=== PATIENT | female | born 1985 | race Caucasian/White ===

== ENCOUNTER 2023-08-25 10:18 | Emergency (ER) | payer OTHER, SELFPAY ==
[2023-08-25 10:32] VITALS: BP 107/56; PULSE 71; RESP 18; TEMP 36.6; O2SAT 100
--- NOTE | 2023-08-25 10:34 | ED.GENADULT ---
HPI - General Adult General Chief complaint: Urogenital-Female Stated complaint: uti symptoms Time Seen by Provider: 08/25/23 10:33 Source: patient, RN notes reviewed and old records reviewed Mode of arrival: ambulatory Limitations: no limitations History of Present Illness HPI narrative: 38 year old female to [facility] with complaint of urinary frequency, urgency, painful and burning urination for 3 days. Patient also endorsing lower abdominal cramps and hematuria with wiping post void. Patient denies vaginal odor, itching, discharge, fevers, nausea, abdominal pain, back pain. Patient endorses last menstrual period was last week. Patient endorsing current pain of 1/10. P atient denies attempting to treat at home prior to arrival. Patient able to tolerate fluids by mouth. Related Data Home Medications Medication Instructions Recorded Confirmed metformin 500 mg tablet mg 08/25/23 Allergies Allergy/AdvReac Type Severity Reaction Status Date / Time No Known Allergies Allergy Verified 08/25/23 10:35 Review of Systems Review of Systems: All systems reviewed & are unremarkable except as noted in HPI and below Constitutional: Constitutional: Reports as per HPI and Denies fever(s) Eyes: Eyes: Reports no additional eye complaints ENT: Reports system reviewed and no additional complaints, except as documented Cardiovascular: Cardiovascular: Reports no additional cardiovascular complaints, Denies chest pain and Denies dyspnea Respiratory: Respiratory: Reports no additional respiratory complaints, Denies cough and Denies dyspnea Gastrointestinal: Gastrointestinal: Reports as per HPI, Denies nausea and Denies vomiting Genitourinary: Genitourinary: Reports as per HPI, Reports hematuria (when wiping post void), Reports nocturia, Denies genital pruritis, Denies flank pain, Denies urinary incontinence, Reports urinary urgency and Denies vaginal pruritus Musculoskeletal: Musculoskeletal: Reports no additional musculoskeletal complaints Neurologic: Reports system reviewed and no additional complaints, except as documented Psychiatric: Psychiatric: Reports no additional psychiatric complaints PMFSH Comments At the time of my signature, I reviewed and agree with the nursing past medical, surgical, social, and family history. There is no relevant family history pertinent to the patient complaint. Exam Const: General: cooperative, healthy appearing, no acute distress, alert and well nourished Nutritional Appearance: well nourished Orientation/consciousness: patient oriented x3 Limitations: no limitations HENMT: Head: normal to inspection Ears: external ears normal Face/Nose/Sinus: Normal external nose present, Normal nares present, normal facial exam, No erythema and No edema Face and sinus: normal facial exam, no erythema and no edema Mouth: Yes Normal oral and palatal mucosa present Eyes: General: appearance normal, both eyes and all related structures Neck: Neck: normal visual inspection, full ROM and no meningeal signs Lymphatic: no lymphadenopathy noted and no lymphedema noted Chest: Chest palpation & inspection: normal inspection of the chest Resp: Effort & Inspection: normal respiratory effort and able to speak in complete sentences Auscultation: clear to auscultation bilaterally Cardio: Jugular venous distension: no JVD Rate: regular rate Rhythm: regular rhythm : General: Yes no CVA tenderness Back/Spine/Pelvis: Cervical Spine: cervical ROM normal Skin: General skin exam: normal color, no rashes or lesions noted and turgor normal Neuro: General: patient oriented x3, gait normal, moves all extremities and no meningeal signs Speech: normal speech Gait exam (Neuro): Normal gait present Extrem: General: normal to inspection, full ROM and capillary refill normal Psych: Appearance: grossly normal and well kempt Course Course Emergency Course: Some parts of this dictation were generated
[2023-08-25 10:36] VITALS: BP 107/56; PULSE 71; RESP 18; TEMP 36.6; O2SAT 100
== END 2023-08-25 10:51 | disposition home or self-care (01) ==
PROVIDERS: Emergency Provider Nurse Practitioner Family
DX: N39.0 Urinary tract infection, site not specified (principal); B96.20 Unspecified Escherichia coli [E. coli] as the cause of diseases classified elsewhere; E28.2 Polycystic ovarian syndrome
CPT/HCPCS: 81003; 87077; 87086; 87088; 87186; 99203; G0463